=== PATIENT | female | born 1995 | race Caucasian/White ===

== ENCOUNTER 2023-02-19 19:52 | Inpatient (IN) ==
[2023-02-19 20:33] LABS: BUN Creatinine Ratio 14.8 (10-20); Calcium 8.5 mg/dl (8.6-10.3); Est GFR (Non-African American) 122.5 ml/min; Potassium 3.6 mmol/L (3.5-5.1)
[2023-02-19 20:47] LABS: Hemoglobin 13.2 g/dl (12.0-16.0); Mean Corpuscular Hgb Conc 34.7 g/dL (32.0-36.0); Mean Corpuscular Volume 92.2 fL (80.0-100.0); Platelet Count 1 K/uL (130-400); RDW Coefficient of Variation 13.2 % (11.5-14.5); RDW Standard Deviation 44.4 fL (36.4-46.3); Red Blood Count 4.12 M/uL (4.20-5.40); White Blood Count 7.21 K/ul (4.8-10.8)
[2023-02-19] MEDS ORDERED: IMMUNE GLOBULIN (HUMAN) SOLN IV ONE (21:39)
[2023-02-19] MEDS ORDERED: DEXAMETHASONE SOD INJ 4 MG/ML VIAL IV STA (21:39)
[2023-02-19 21:48] LABS: INR 0.9 (0.9-1.1); Partial Thromboplastin Ratio 0.8; Partial Thromboplastin Time 23.7 Seconds (21.0-31.0); Prothrombin Time 10.2 Seconds (9.0-12.0)
[2023-02-19] MEDS ORDERED: methylPREDNISolone 125 MG/2 ML VIAL IV STA (22:04)
[2023-02-19 22:06] LABS: Albumin Level 3.8 gm/dl (3.4-5.0); Bilirubin,Total 0.3 mg/dl (0.2-1.0); Total Protein 6.6 gm/dl (6.0-8.3)
[2023-02-19] MEDS ORDERED: Octagam 10% IVIG 5 gram bottle IV ONE (22:30)
[2023-02-19] MEDS ORDERED: Octagam 10% IVIG 10 gram bottle IV ONE (23:00)
--- NOTE | 2023-02-19 23:33 | History & Physical Report ---
Date of Service February 19, 2023 Assessment & Plan (1) Thrombocytopenia complicating : Plan: -Severe thrombocytopenia with platelets of 1 -Suspect likely ITP in setting of , her other labs including Hgb, coagulation studies and CMP are reassuring -Pt is hemodynamically stable without any signs of active bleeding at present -Multiple labs pending- haptoglobin, LDH, hepatitis panel, peripheral smear -IVIG initiated in ER, will continue -Solumedrol initiated in ER, will continue -Hematology consulted, appreciate recommendations -Monitor CBC (2) : Plan: - at 16 wk GA by US, no other complications with this -OB consulted for routine care -Continue vitamin (3) Hyponatremia: Plan: -Mild hyponatremia Na 135 on admission, likely 2/2 reduced oral intake -Ongoing fluid repletion -Monitor BMP Plan FENGI: Regular OB Code status: Full DVT ppx: SCDs, defer chemoprophylaxis in setting of severe thrombocytopenia Isolation: None Dispo: PCU History of Present Illness Chief Complaint: Low platelets Primary Care Provider: NO PCP Pt is 27 yo F at 16wk GA presenting with thrombocytopenia. Pt states she had lab work done at OB visit on day prior when her platelets were 23. She had repeat labs done today with Plts 1. Pt denies any symptoms of bleeding or easy bruising, denies any other symptoms aside from mild fatigue which she notes has been occurring intermittently throughout her thus far. Pt arrived to ER hemodynamically stable. Initial evaluation significant for Plts 1, Na 135. Had TVUS done on day prior with EFW 25th percentile. ER physician discussed case with hematology, treatment initiated with IVIG + Solumedrol. At present, pt reports no symptoms aside from mild fatigue as above. Denies any other complaints. Allergies Allergy/AdvReac Type Severity Reaction Status Date / Time No Known Allergies Allergy Verified 02/18/23 14:46 Home Medications Medication Instructions Recorded Confirmed Type prenat.vits,trevor,kcn-[id number]-qxliy 1 tab PO DAILY 02/11/23 02/18/23 History Past Med/Surg History Medical History Varicella vaccination Surgical History S/P wrist surgery Family History Denies family history of Ovarian cancer Breast cancer Colorectal cancer Social History Smoking Status: Never smoker Do You Dip or Chew Tobacco: No; Hx Alcohol Use: No Hx Substance Use: No Preferred Language: French Communication Ability: Effective Motorcycle Deliverer Required: No Beliefs That Will Affect Care: None marital status: marital status details: Carlos Mccarthy (31) [phone] Current Living Situation: Spouse Current Living Situation Comment: lives with spouse, 2 children, 2 adopted children current occupational status: employed current occupation: [employer] Feels Safe at Home: Yes Safety Concerns: Feels Safe At This Time Assistive Devices: None Review of Systems Review of Systems: Per HPI/Subjective Physical Exam Physical Exam: General: well-appearing, no acute distress HEENT: PERRL, EOMI, conjunctivae clear without injection, anicteric sclerae, moist mucous membranes, clear oropharynx without exudate or erythema Neck: supple, trachea midline, no thyromegaly, no JVD, no cervical lymphadenopathy CV: RRR, normal S1 and S2, no murmurs Resp: CTAB, no increased work of breathing, no crackles or wheezes Abd: Soft, nontender, nondistended, no guarding or rebound, no hepatosplenomegaly, gravid MSK: Normal bulk of all four extremities Neuro: AOx3, no focal motor or sensory deficits Skin: no rashes or lesions, warm and dry, no ecchymoses Ext: no LE peripheral edema or erythema, capillary refill <2s in all four extremities, 2+ LE peripheral pulses b/l Results & Data Results & Data Vital Signs (Past 12 Hours) Vital Signs Temp Pulse Pulse Resp BP BP Pulse Ox 02/19/23 22:52 72 18 121/74 99 02/19/23 19:54 36.9 C 70 17 135/84 100 O2 Del Method 02/19/23 22:52 Room Air 02/19/23 19:54 Room Air Supervising Physician Co-Signing Physician Notes Attending addendum: I have physically seen this patient, have supervised the medical residents activities, and agree with the H&P unless as otherwise noted. Assessment and Plan: Thrombocytopenia- Platelet count of 1 Most likely ITP in the setting of Treatment recommendations as per hematology oncology IVIG IV Solu-Medrol - 16-week gestation OB consult Remaining orders and notations as noted Resident Activity Tracking Resident Involvement: Resident Care Provided Care Provided: Adult [facility]
[2023-02-20 01:07] LABS: Adenovirus PCR Not Detected (NotDetected); Bordetella parapertussis PCR Not Detected (NotDetected); Bordetella pertussis PCR Not Detected (NotDetected); Chlamydia pneumoniae PCR Not Detected (NotDetected); Coronavirus 229E PCR Not Detected (NotDetected); Coronavirus CoV-2 (COVID19)PCR Not Detected (NotDetected); Coronavirus HKU1 PCR Not Detected (NotDetected); Coronavirus NL63 PCR Not Detected (NotDetected); Coronavirus OC43PCR Not Detected (NotDetected); Human Metapneumovirus PCR Not Detected (NotDetected); Influenza A PCR Not Detected (NotDetected); Influenza B PCR Not Detected (NotDetected); Mycoplasma pneumoniae PCR Not Detected (NotDetected); Parainfluenza Virus 1 PCR Not Detected (NotDetected); Parainfluenza Virus 2 PCR Not Detected (NotDetected); Parainfluenza Virus 3 PCR Not Detected (NotDetected); Parainfluenza Virus 4 PCR Not Detected (NotDetected); Respiratory Syncytial VirusPCR Not Detected (NotDetected); Rhinovirus/Enterovirus PCR Not Detected (NotDetected)
[2023-02-20] MEDS ORDERED: ONDANSETRON INJ 2 MG/ML 2 ML VIAL IV PRN (01:30)
[2023-02-20] MEDS ORDERED: LACTATED RINGER'S 1,000 ML IV SCH (01:30)
--- NOTE | 2023-02-20 01:37 | Emergency Department Note ---
Impression & Plan Thrombocytopenia complicating , Acute ITP ED Provider Note CHIEF COMPLAINT: Abnormal laboratory work HISTORY OF PRESENT ILLNESS: This 27 yo patient 15 weeks presents to the emergency department with complaints of abnormal laboratory work. Patient states she went to her usual [facility] appointment for routine care. They ordered laboratory work for baseline and patient was noted to have platelet count of 23. They asked her to repeat the laboratory work today, platelet count was 1. Patient was sent to the emergency department for further management. She denies any bleeding or cramping. She has not had any blood in her stools. She has not had any recent upper respiratory infections but does admit to some vomiting over the last month. Patient denies any history of similar. She states she has had 2 normal pregnancies prior to this . REVIEW OF SYSTEMS: A review of systems was performed with positives and pertinent negatives listed in the history of present illness. 10 systems were reviewed and are otherwise negative. ALLERGIES: see below MEDICATIONS: see below PMH: see below SOCIAL HISTORY: see below DDx: ITP, TTP, HELLP syndrome, fever, viral illness, malignancy, among others PHYSICAL EXAM: Vital signs reviewed. General: Well-appearing 27-year-old female, in no significant distress. HEENT: No scleral icterus, PERRLA, neck supple. Atraumatic. Cardiovascular: Regular rate and rhythm, no extra sounds. Pulmonary: Clear to auscultation bilaterally, normal work of breathing. Abdomen: Soft, nontender, nondistended, positive bowel sounds. Musculoskeletal: Atraumatic, no peripheral edema. Neurologic: Patient awake alert and oriented x 3, speech is clear Skin: Warm, dry, no rash, no bruising noted EMERGENCY DEPARTMENT COURSE/MDM: This pt was evaluated and appeared to be in no distress. IV access was obtained and lab work was drawn. PT was placed on the vehicle monitor technician and lab work was drawn. External medical records were reviewed including OB notes and labs. Today's lab work is c/w severe thrombocytopenia. Thankfully pt denies signs of bleeding, bruising. Case was d/w hematology Dr. Ireland, who made recommendations for IV solu-medral and IVIG. She will consult on a medical admission. First dose of medications were ordered including 1mg/kg solumedral. Pt was informed of the findings and plan, and agrees. Pt was d/w the hospitalist service for admission and further management. MONITORING: An order for cardiac monitoring was placed and the patient is noted to be in a NSR at 80 beats per minute. DISPOSITION: Admit I have personally spent 40 minutes of critical care time in the direct management of this patient. This was a life/limb threatening event. This 40 minutes is in excess of all separately billable procedures. Past Med/Surg History Medical History Varicella vaccination Surgical History S/P wrist surgery Family History Denies family history of Ovarian cancer Breast cancer Colorectal cancer Social History Smoking Status: Never smoker Do You Dip or Chew Tobacco: No; Hx Alcohol Use: No Hx Substance Use: No Preferred Language: Mongolian Communication Ability: Effective Armored Vehicle Officer Required: No Beliefs That Will Affect Care: None marital status: marital status details: Carlos Mccarthy (31) [phone] Current Living Situation: Spouse Current Living Situation Comment: lives with spouse, 2 children, 2 adopted children current occupational status: employed current occupation: [employer] Feels Safe at Home: Yes Assistive Devices: None Allergies Allergies Allergy/AdvReac Type Severity Reaction Status Date / Time No Known Allergies Allergy Verified 02/18/23 14:46 Home Meds Home Medications Medication Instructions Recorded Confirmed prenat.vits,trevor,[id number] 1 tab PO DAILY 02/11/23 02/18/23 Previous Rx's Medication Instructions Recorded cyanocobalamin (vitamin B-12) 500 1,000 mcg PO QAM #30 tabs 02/22/23 mcg tablet prednisone 20 mg tablet 60 mg PO DAILY #90 tabs 02/22/23 Results & Data (ED) Vital Signs Vital Signs - 24 hr 02/19/23 19:54 02/19/23 22:52 Temperature 36.9 C Temperature Source Temporal Artery Scan Pulse Rate 70 Pulse Rate [Right Finger] 72 Pulse Rhythm Regular Pulse Rhythm [Right Finger] Regular Pulse Strength Normal Pulse Strength [Right Finger] Normal Respiratory Rate 17 18 Respiratory Effort / Characteristics Non-Labored Spontaneous Non-Labored Spontaneous Respiratory Depth Normal Normal Respiratory Pattern Regular Regular Blood Pressure 135/84 Blood Pressure [Right Arm] 121/74 Blood Pressure Mean 101 Blood Pressure Mean [Right Arm] 89 Blood Pressure Position Sitting Blood Pressure Position [Right Arm] Lying Pulse Oximetry 100 99 Oxygen Delivery Method Room Air Room Air Sepsis Recent Fever Within 48 Hours No Sepsis New/Unexplained Change in Mental Status N/A Sepsis Action Taken by Nursing No Action Required Home Medications Current Medication List: was personally reviewed by me Laboratory Data Attestation: I reviewed the patient's lab results. 02/19/23 20:03 02/19/23 20:00 Lab Results 02/19/23 02/19/23 02/19/23 Range/Units 20:00 20:00 20:03 WBC (4.8-10.8) K/ul RBC (4.20-5.40) M/uL Hgb (12.0-16.0) g/dl Hct (37.0-47.0) % MCV (80.0-100.0) fL MCH (25.0-34.0) pg MCHC (32.0-36.0) g/dL RDW Std Deviation (36.4-46.3) fL RDW Coeff of Sal (11.5-14.5) % Plt Count (130-400) K/uL Peripher Smr Path Cons Haptoglobin (43-212) mg/dL PT 10.2 (9.0-12.0) Seconds INR 0.9 (0.9-1.1) APTT 23.7 (21.0-31.0) Seconds PTT Ratio 0.8 Sodium 135 L (136-145) mmol/L Potassium 3.6 (3.5-5.1) mmol/L Chloride 104 (98-107) mmol/L Carbon Dioxide 25 (21-32) mmol/L Anion Gap 6 (3-11) BUN 9 (6-23) mg/dl Creatinine 0.61 (0.6-1.2) mg/dl Est Cr Clr Drug Dosing 122.0 ml/min Est GFR ( Amer) 142.0 ml/min Est GFR (Non-Af Amer) 122.5 ml/min BUN/Creatinine Ratio 14.8 (10-20) Glucose 85 (70-99(Fasting)) mg/dl Calcium 8.5 L (8.6-10.3) mg/dl Total Bilirubin 0.3 (0.2-1.0) mg/dl Direct Bilirubin 0.0 (0-0.2) mg/dl AST 21 (13-39) U/L ALT 13 (7-52) U/L Alkaline Phosphatase 46 (34-104) U/L Lactate Dehydrogenase (86-244) U/L Total Protein 6.6 (6.0-8.3) gm/dl Albumin 3.8 (3.4-5.0) gm/dl HCG, Quant mIU/ml Hepatitis A IgM Ab (NON-REACTIVE) Hep Bs Antigen (NON-REACTIVE) Hep Bs Ag Confirmation Hep B Core IgM Ab (NON-REACTIVE) Hepatitis C Ab (EIA) (NON-REACTIVE) Hep C Ab Signal/Cutoff (<1.00) Blood Type O Positive Antibody Screen NEGATIVE 02/19/23 02/19/23 02/19/23 Range/Units 20:03 20:03 20:03 WBC 7.21 (4.8-10.8) K/ul RBC 4.12 L (4.20-5.40) M/uL Hgb 13.2 (12.0-16.0) g/dl Hct 38.0 (37.0-47.0) % MCV 92.2 (80.0-100.0) fL MCH 32.0 (25.0-34.0) pg MCHC 34.7 (32.0-36.0) g/dL RDW Std Deviation 44.4 (36.4-46.3) fL RDW Coeff of Sal 13.2 (11.5-14.5) % Plt Count 1 L* (130-400) K/uL Peripher Smr Path Cons Haptoglobin 70 (43-212) mg/dL PT (9.0-12.0) Seconds INR (0.9-1.1) APTT (21.0-31.0) Seconds PTT Ratio Sodium (136-145) mmol/L Potassium (3.5-5.1) mmol/L Chloride (98-107) mmol/L Carbon Dioxide (21-32) mmol/L Anion Gap (3-11) BUN (6-23) mg/dl Creatinine (0.6-1.2) mg/dl Est Cr Clr Drug Dosing ml/min Est GFR ( Amer) ml/min Est GFR (Non-Af Amer) ml/min BUN/Creatinine Ratio (10-20) Glucose (70-99(Fasting)) mg/dl Calcium (8.6-10.3) mg/dl Total Bilirubin (0.2-1.0) mg/dl Direct Bilirubin (0-0.2) mg/dl AST (13-39) U/L ALT (7-52) U/L Alkaline Phosphatase (34-104) U/L Lactate Dehydrogenase (86-244) U/L Total Protein (6.0-8.3) gm/dl Albumin (3.4-5.0) gm/dl HCG, Quant [id number] mIU/ml Hepatitis A IgM Ab (NON-REACTIVE) Hep Bs Antigen (NON-REACTIVE) Hep Bs Ag Confirmation Hep B Core IgM Ab (NON-REACTIVE) Hepatitis C Ab (EIA) (NON-REACTIVE) Hep C Ab Signal/Cutoff (<1.00) Blood Type Antibody Screen 02/19/23 02/19/23 Range/Units 22:48 22:48 WBC (4.8-10.8) K/ul RBC (4.20-5.40) M/uL Hgb (12.0-16.0) g/dl Hct (37.0-47.0) % MCV (80.0-100.0) fL MCH (25.0-34.0) pg MCHC (32.0-36.0) g/dL RDW Std Deviation (36.4-46.3) fL RDW Coeff of Sal (11.5-14.5) % Plt Count (130-400) K/uL Peripher Smr Path Cons Haptoglobin (43-212) mg/dL PT (9.0-12.0) Seconds INR (0.9-1.1) APTT (21.0-31.0) Seconds PTT Ratio Sodium (136-145) mmol/L Potassium (3.5-5.1) mmol/L Chloride (98-107) mmol/L Carbon Dioxide (21-32) mmol/L Anion Gap (3-11) BUN (6-23) mg/dl Creatinine (0.6-1.2) mg/dl Est Cr Clr Drug Dosing ml/min Est GFR ( Amer) ml/min Est GFR (Non-Af Amer) ml/min BUN/Creatinine Ratio (10-20) Glucose (70-99(Fasting)) mg/dl Calcium (8.6-10.3) mg/dl Total Bilirubin (0.2-1.0) mg/dl Direct Bilirubin (0-0.2) mg/dl AST (13-39) U/L ALT (7-52) U/L Alkaline Phosphatase (34-104) U/L Lactate Dehydrogenase 151 (86-244) U/L Total Protein (6.0-8.3) gm/dl Albumin (3.4-5.0) gm/dl HCG, Quant mIU/ml Hepatitis A IgM Ab NON-REACTIVE (NON-REACTIVE) Hep Bs Antigen NON-REACTIVE (NON-REACTIVE) Hep Bs Ag Confirmation TNP Hep B Core IgM Ab NON-REACTIVE (NON-REACTIVE) Hepatitis C Ab (EIA) NON-REACTIVE (NON-REACTIVE) Hep C Ab Signal/Cutoff 0.07 (<1.00) Blood Type Antibody Screen Administered Medications Discontinued Medications Acetaminophen (Acetaminophen 325 Mg Tab) 650 mg PO NOW STA Stop: 02/20/23 14:04 Last Admin: 02/20/23 14:08 Dose: 650 mg Documented By: EVA Cyanocobalamin (Cyanocobalamin (B-12) 500 Mcg Tablet) 1,000 [facility]cg [facility] Stop: 03/22/23 12:29 Last Admin: 02/22/23 09:17 Dose: 1,000 mcg Documented By: Admin: 02/21/23 08:52 Dose: 1,000 mcg Documented By: Admin: 02/20/23 14:08 Dose: 1,000 mcg Documented By: EVA Dexamethasone (Dexamethasone Sod Inj 4 Mg/Ml Vial) 40 mg IV NOW STA Stop: 02/19/23 21:40 Last Admin: 02/19/23 22:15 Dose: Not Given Documented By: WOOD PREPARATION SUPERVISOR Immune Globulin (Octagam 10%) 200 mls @ 34.08 mls/hr IV 0000,2330 [facility]; Protocol Stop: 02/20/23 05:53 Last Titration: 02/20/23 12:09 Dose: 0 mg/kg/min, 0 mls/hr Documented By: Admin: 02/20/23 08:30 Dose: 2.05 mg/kg/min, 70 mls/hr Documented By: Titration: 02/20/23 08:13 Dose: 2.05 mg/kg/min, 70 mls/hr Documented By: Titration: 02/20/23 05:27 Dose: 2.05 mg/kg/min, 70 mls/hr Documented By: Admin: 02/20/23 05:14 Dose: 1 mg/kg/min, 34.1 mls/hr Documented By: EMB Immune Globulin (Octagam 10%) 100 mls @ 34.08 mls/hr IV 2300 ONE; Protocol Stop: 02/20/23 01:56 Last Titration: 02/20/23 04:25 Dose: 0 mg/kg/min, 0 mls/hr Documented By: Titration: 02/20/23 03:18 Dose: 2 mg/kg/min, 68.2 mls/hr Documented By: Admin: 02/20/23 01:54 Dose: 1 mg/kg/min, 34.1 mls/hr Documented By: AW Immune Globulin (Octagam 10%) 50 mls @ 34.08 mls/hr IV 2230 ONE; Protocol Stop: 02/19/23 23:58 Last Titration: 02/20/23 01:39 Dose: 0 mg/kg/min, 0 mls/hr Documented By: Admin: 02/20/23 00:14 Dose: 1 mg/kg/min, 34.1 mls/hr Documented By: AW Lactated Ringer's (Lr) 1,000 mls @ 80 mls/hr IV .[id number] POLLO Stop: 02/20/23 13:59 Last Infusion: 02/20/23 18:09 Dose: 0 mls/hr Documented By: Admin: 02/20/23 10:18 Dose: 80 mls/hr Documented By: NH Magnesium Sulfate (Magnesium Sulfate / Wtr) 40 gm in 1,000 mls @ 50 mls/hr IV .Q20H POLLO Stop: 03/22/23 10:44 Last Admin: 02/20/23 11:09 Dose: Not Given Documented By: EVA Immune Globulin (Octagam 10%) 200 mls @ 34.08 mls/hr IV 1700,1730,1800 POLLO; Protocol Stop: 02/20/23 23:53 Last Admin: 05/24/23 18:09 Dose: Not Given Documented By: AM Immune Globulin (Octagam 10%) 200 mls @ 34.08 mls/hr IV 0800,0830,0900 [facility]; Protocol Stop: 02/21/23 14:53 Last Titration: 02/22/23 02:00 Dose: 0 mg/kg/min, 0 mls/hr Documented By: Admin: 02/21/23 20:19 Dose: 1 mg/kg/min, 34.1 mls/hr Documented By: Titration: 02/21/23 20:09 Dose: 1 mg/kg/min, 34.1 mls/hr Documented By: Admin: 02/21/23 14:17 Dose: 1 mg/kg/min, 34.1 mls/hr Documented By: Titration: 02/21/23 14:17 Dose: 1 mg/kg/min, 34.1 mls/hr Documented By: Admin: 02/21/23 08:45 Dose: 1 mg/kg/min, 34.1 mls/hr Documented By: LELO Immune Globulin (Immune Globulin (Human) Soln ) 1 each IV NOW ONE Stop: 02/19/23 21:40 Last Admin: 02/20/23 00:58 Dose: Not Given Documented By: SHANICE Immune Globulin (Immune Globulin (Human) Soln ) 1 each IV NOW ONE Stop: 02/20/23 16:38 Last Admin: 02/20/23 18:09 Dose: Not Given Documented By: AM Magnesium Sulfate (Mag Sulfate 4gm Bolus From Bag) 4 gm IV ONE ONE Stop: 02/20/23 10:46 Last Admin: 02/20/23 11:09 Dose: Not Given Documented By: EVA Methylprednisolone (Methylprednisolone 125 Mg/2 Ml Vial) 55 mg IV NOW STA Stop: 02/19/23 22:05 Last Admin: 02/19/23 23:49 Dose: 55 mg Documented By: SHANICE Prednisone (Prednisone 20 Mg Tab) 60 mg PO DAILY [facility] Stop: 03/22/23 08:59 Last Admin: 02/22/23 09:17 Dose: 60 mg Documented By: Admin: 02/21/23 08:52 Dose: 60 mg Documented By: Admin: 02/20/23 08:31 Dose: 60 mg Documented By: RADHA Prenat Multivit/[place]/Iron/Folic Ac ( Vitamin 1 Tab) 1 tab PO DAILY POLLO Stop: 03/22/23 08:59 Last Admin: 02/22/23 09:17 Dose: 1 tab Documented By: Admin: 02/21/23 08:52 Dose: 1 tab Documented By: Admin: 02/20/23 08:40 Dose: 1 tab Documented By: OK Discharge Plan Visit Data Chief Complaint: Abnormal Labs/Diagnostic Testing Stated Complaint: LOW PLATELETS,REF BY DOC, ED Provider: Sierra Domínguez Discharge Problem: Thrombocytopenia complicating , Acute ITP Patient Disposition: Admitted As Inpatient Discharge Instructions Interventions: ED Discharge Assessment Last Done: 02/20/23 16:55
[2023-02-20] MEDS: Octagam 10% IVIG 20 gram bottle IV SCH ×2 (05:14→08:30)
[2023-02-20 07:33] LABS: Albumin Level 3.3 gm/dl (3.4-5.0); Bilirubin,Total 0.3 mg/dl (0.2-1.0); Calcium 8.6 mg/dl (8.6-10.3); Creatinine Clr Calc Pharmacy 106.3 ml/min; Est GFR (African American) 135.7 ml/min; Est GFR (Non-African American) 117.1 ml/min; Globulin 3.2 gm/dl (2.5-4.0); Potassium 4.3 mmol/L (3.5-5.1); Total Protein 6.5 gm/dl (6.0-8.3)
[2023-02-20 07:44] LABS: Prothrombin Time 10.5 Seconds (9.0-12.0)
[2023-02-20 07:48] LABS: Hemoglobin 12.2 g/dl (12.0-16.0); Mean Corpuscular Hemoglobin 31.3 pg (25.0-34.0); Mean Corpuscular Hgb Conc 34.9 g/dL (32.0-36.0); Mean Corpuscular Volume 89.7 fL (80.0-100.0); Platelet Count 1 K/uL (130-400); RDW Coefficient of Variation 12.9 % (11.5-14.5); RDW Standard Deviation 42.5 fL (36.4-46.3); White Blood Count 6.92 K/ul (4.8-10.8)
[2023-02-20 07:58] LABS: Basophils # (auto) 0.03 K/uL (0-0.2); Basophils % (auto) 0.4 %; Immature Granulocytes # (auto) 0.03 K/uL (0.01-0.20); Immature Granulocytes % (auto) 0.4 %; Lymphocytes # (auto) 0.63 K/uL (1.2-3.4); Lymphocytes % (auto) 9.1 %; Monocytes # (auto) 0.07 K/uL (0.11-0.59); Neutrophils # (auto) 6.16 K/uL (1.40-6.50); Neutrophils % (auto) 89.1 %
[2023-02-20] MEDS: predniSONE 20 MG TAB PO SCH (08:31)
[2023-02-20] MEDS: PRENATAL VITAMIN 1 TAB PO SCH (08:40)
--- NOTE | 2023-02-20 08:59 | OB/GYN Consultation ---
Date of Consultation February 20, 2023 Assessment & Plan (1) with 16 completed weeks gestation: (2) Thrombocytopenia complicating : Plan Patient has severe TCP discovered on routine PN labs. She is asymptomatic from this standpoint. She has never had an issue with this in the past. Given the severity, she was advised to come to the hospital for evaluation. She has no specific ob issues at this point, no s/s of bleeding. She notes some mild, intermittent cramping. Management per primary care team. FHT reassuring today. Continue daily pnv. f/u in the outpatient office once d/c. Please let us know if there is anything ob related that we can help with. Otherwise, management per hospitalist for TCP. History of Present Illness Reason for Consultation: severe thrombocytopenia in Requesting Physician: hospitalist Attending Physician: Colton Jules History of Present Illness Patient is a 27yowf who recently presented for a nob visit at 16 11/06. She is currently 16 01/04 by irregular lmp, late presentation to care. She had routine ob labs including cbc with plt count of 23K. She had this repeated late in the day yesterday and count was found to be 1K. She was advised to come to the hospital for evaluation and is being admitted. We are being consulted for "routine ob care". Patient has a hx of two previous uncomplicated pregnancies and deliveries at [place] . This is her first with us. Past Pregnancies Del. Date GA wks Lbr Lgth wt Sex Type del [facility] Del Prov ? Comment 01/08/18 40 30 minutes, pushed 10 minutes 6- 12 M None Other [facility] 01/28/19 40 30 minutes, pushed 10 minutes 6- 4 F None Other [facility] and Delivery Plans Hx precipitous labor ob labs--O+/ab-/rprnr/hiv neg/ri. Hepb and c pending as labs were only drawn on 02/18. Allergies Allergy/AdvReac Type Severity Reaction Status Date / Time No Known Allergies Allergy Verified 02/18/23 14:46 Home Medications Medication Instructions Recorded Confirmed Type prenat.vits,trevor,vlc-fncv-imodz 1 tab PO DAILY 02/11/23 02/18/23 History Patient History Medical History Varicella vaccination Surgical History S/P wrist surgery Family History Denies family history of Ovarian cancer Breast cancer Colorectal cancer Social History Smoking Status: Never smoker Do You Dip or Chew Tobacco: No; Hx Alcohol Use: No Hx Substance Use: No Preferred Language: Faroese Communication Ability: Effective Space Officer Required: No Beliefs That Will Affect Care: None marital status: marital status details: Carlos Mccarthy (31) [phone] Current Living Situation: Spouse Current Living Situation Comment: lives with spouse, 2 children, 2 adopted children current occupational status: employed current occupation: [employer] Feels Safe at Home: Yes Safety Concerns: Feels Safe At This Time Physical Exam Constitutional: WD/WN, vitals as above Gastrointestinal (Abdomen): soft, nt, nd, fundus palpates about 16 weeks. Genitourinary: fht--125-130 Results & Data Vital Signs (Past 12 Hours) Vital Signs Temp Pulse Pulse Resp BP BP Pulse Ox 02/20/23 08:57 75 02/20/23 07:30 37.0 C 71 17 110/69 98 02/20/23 06:43 70 17 101/66 98 02/20/23 04:42 70 14 99/65 L 98 02/20/23 03:55 02/20/23 03:00 78 18 97/55 L 98 02/20/23 00:31 80 18 121/76 98 02/19/23 22:52 72 18 121/74 99 Pulse Ox O2 Del Method O2 Del Method 02/20/23 08:57 02/20/23 07:30 Room Air 02/20/23 06:43 02/20/23 04:42 Room Air 02/20/23 03:55 98 Room Air 02/20/23 03:00 Room Air 02/20/23 00:31 Room Air 02/19/23 22:52 Room Air PG Care Time/CCT Total # of Minutes Spent Total Time Spent with Patient: Total time spent is greater than 50% in coordination of care (as documented) at patient's floor/unit and/or counseling patient: Coding Level of Care Code 49330 Inpt Consult Level 1 Diagnoses with 16 completed weeks gestation Z3A.16 Thrombocytopenia complicating O99.119; D69.6
[2023-02-20] MEDS ORDERED: MAGNESIUM SULFATE / WTR 40 GM/1,000 ML BAG IV SCH (10:45)
[2023-02-20] MEDS ORDERED: MAG SULFATE 4GM BOLUS FROM BAG IV ONE (10:45)
[2023-02-20] MEDS ORDERED: ACETAMINOPHEN 325 MG TAB PO STA (14:03)
--- NOTE | 2023-02-20 14:05 | Oncology Consultation ---
Date of Consultation February 20, 2023 Assessment & Plan (1) Acute ITP: (2) Thrombocytopenia complicating : (3) B12 deficiency: Plan Very pleasant 27-year-old female who presented with severe thrombocytopenia and platelet count of 1000. She denies any recent new medications, viral infections or other potential causes of ITP. Viral studies including testing for hepatitis B, C and HIV obtained by her net front end developer were negative. Coagulation panel was also within normal limits with normal PT/INR and PTT. Liver enzymes were also normal. Peripheral smear review did not show any evidence to suggest schistocytes. She also has no anemia. Based on this, there is no evidence to suggest TTP/HUS, DIC or HELLP syndrome. Explained to patient, her mother and that ITP in general is usually a diagnosis of exclusion and her presentation is very consistent with ITP given negative work so far. No concern at this time for underlying hematologic malignancy or other hematologic process.. ITP has been well reported in . Would recommend IVIG 1 g/kg/day x 2 days. For steroid coverage, recommend prednisone 1 mg/kg/day since this is less likely to cross the placenta. Since B12 level is low normal, recommend B12 supplementation. Ideally, would have started her on parenteral B12 supplementation however will start with oral B12 supplementation at this time given severe thrombocytopenia. Recommend rechecking CBC later this afternoon. Would expect platelet count to improve over the next 24 to 48 hours. If she develops any sign of bleeding, would recommend platelet transfusion at that time Thank you for this consult. Please feel free to call if you have any further questions History of Present Illness Reason for Consultation: Severe thrombocytopenia Attending Physician: Colton Jules History of Present Illness Very pleasant 27-year-old female who is currently about 16 weeks who presented to [facility] ER yesterday with severe thrombocytopenia and platelet count of 1000. Patient states that she had routine labs obtained by her net front end developer on 02/18/2023 which revealed platelet count of 23,000. Her OB then recommended repeat labs obtained on 02/19/2023 which revealed platelet count of 1000 for which she was told to present to the ER. She denies abnormal bleeding or bruising. Denies prior history of thrombocytopenia. Discussed case with ER physician and recommended she receive IVIG 1 g/kg/day x 2 days as well as prednisone 1 mg/kg/day. Allergies Allergy/AdvReac Type Severity Reaction Status Date / Time No Known Allergies Allergy Verified 02/18/23 14:46 Home Medications Medication Instructions Recorded Confirmed Type prenat.vits,trevor,aqw-ndec-kgvfp 1 tab PO DAILY 02/11/23 02/18/23 History Patient History Medical History Varicella vaccination Surgical History S/P wrist surgery Family History Denies family history of Ovarian cancer Breast cancer Colorectal cancer Social History Smoking Status: Never smoker Do You Dip or Chew Tobacco: No; Hx Alcohol Use: No Hx Substance Use: No Preferred Language: Slovak Communication Ability: Effective Trade Economist Required: No Beliefs That Will Affect Care: None marital status: marital status details: Carlos Mccarthy ([phone] Current Living Situation: Spouse Current Living Situation Comment: lives with spouse, 2 children, 2 adopted children current occupational status: employed current occupation: [employer] Feels Safe at Home: Yes Safety Concerns: Feels Safe At This Time Assistive Devices: None Physical Exam Constitutional: WD/WN, vitals as above well developed and well nourished ENMT: external ear and nose normal, oropharynx normal Respiratory: normal respiratory effort, lungs clear to auscultation Cardiovascular: RRR, no murmur, no edema Gastrointestinal (Abdomen): normal bowel sounds, soft, nontender, no hepatosplenomegaly Results & Data Vital Signs (Past 12 Hours) Vital Signs Temp Pulse Pulse Resp BP BP Pulse Ox 02/20/23 12:04 77 19 02/20/23 12:04 107/68 02/20/23 12:00 66 18 02/20/23 11:30 70 18 02/20/23 11:00 70 17 02/20/23 10:30 78 18 02/20/23 10:00 78 17 98 02/20/23 10:15 36.8 C 02/20/23 09:30 78 19 105/66 99 02/20/23 09:00 72 17 128/67 93 02/20/23 08:30 115/79 02/20/23 09:42 36.8 C 02/20/23 08:57 75 02/20/23 07:30 37.0 C 71 17 110/69 98 02/20/23 06:43 70 17 101/66 98 02/20/23 04:42 70 14 99/65 L 98 02/20/23 03:55 02/20/23 03:00 78 18 97/55 L 98 Pulse Ox O2 Del Method O2 Del Method 02/20/23 12:04 02/20/23 12:04 02/20/23 12:00 02/20/23 11:30 02/20/23 11:00 02/20/23 10:30 02/20/23 10:00 02/20/23 10:15 02/20/23 09:30 Room Air 02/20/23 09:00 Room Air 02/20/23 08:30 02/20/23 09:42 02/20/23 08:57 02/20/23 07:30 Room Air 02/20/23 06:43 02/20/23 04:42 Room Air 02/20/23 03:55 98 Room Air 02/20/23 03:00 Room Air
[2023-02-20] MEDS: CYANOCOBALAMIN (B-12) 500 MCG TABLET PO SCH (14:08)
[2023-02-20] MEDS ORDERED: IMMUNE GLOBULIN (HUMAN) SOLN IV ONE (16:37)
[2023-02-20] MEDS ORDERED: Octagam 10% IVIG 20 gram bottle IV SCH (17:00)
--- NOTE | 2023-02-20 22:10 | Billing Data ---
Date of Service February 20, 2023 Coding Level of Care Code 88769 INT INP/OBS CARE
--- NOTE | 2023-02-20 22:47 | Hospitalist Progress Note ---
Date of Service February 20, 2023 Assessment & Plan (1) Thrombocytopenia complicating : Plan: -Severe thrombocytopenia with platelets of 1 -Suspect likely ITP in setting of , her other labs including Hgb, coagulation studies and CMP are reassuring -Pt is hemodynamically stable without any signs of active bleeding at present -Multiple labs pending- haptoglobin, LDH, hepatitis panel, peripheral smear -IVIG initiated in ER, will continue -Solumedrol initiated in ER, will continue -Hematology consulted, appreciate recommendations -Monitor CBC: appears to be ITP though diagnosis of exclusion. continue IVIG and prednisone (2) : Plan: - at 16 wk GA by US, no other complications with this -OB consulted for routine care -Continue vitamin (3) Hyponatremia: Plan: -Mild hyponatremia Na 135 on admission, likely 2/2 reduced oral intake -Ongoing fluid repletion -Monitor BMP Plan FENGI: Regular OB Code status: Full DVT ppx: SCDs, defer chemoprophylaxis in setting of severe thrombocytopenia Isolation: None Dispo: PCU Admission and Anticipated Discharge Date Admission Date: February 19, 2023 Subjective 27 yo female reports no new symptoms. Review of Systems Review of Systems: All systems reviewed & are unremarkable except as noted in HPI & below Physical Exam Physical Exam: General: well-appearing, no acute distress HEENT: PERRL, EOMI, conjunctivae clear without injection, anicteric sclerae, moist mucous membranes, clear oropharynx without exudate or erythema Neck: supple, trachea midline, no thyromegaly, no JVD, no cervical lymph adenopathy CV: RRR, normal S1 and S2, no murmurs Resp: CTAB, no increased work of breathing, no crackles or wheezes Abd: Soft, nontender, nondistended, no guarding or rebound, no hepatosplenomegaly, gravid MSK: Normal bulk of all four extremities Neuro: AOx3, no focal motor or sensory deficits Skin: no rashes or lesions, warm and dry, no ecchymoses Ext: no LE peripheral edema or erythema, capillary refill <2s in all four extremities, 2+ LE peripheral pulses b/l Results & Data Results & Data Vital Signs (Past 12 Hours) Vital Signs Temp Pulse Pulse Resp BP BP Pulse Ox 02/20/23 19:09 36.8 C 74 18 113/61 99 02/20/23 17:51 36.7 C 67 20 111/76 98 02/20/23 16:26 81 02/20/23 14:30 72 19 02/20/23 14:00 80 19 02/20/23 13:30 67 14 02/20/23 13:00 72 18 02/20/23 12:30 76 20 02/20/23 12:04 77 19 02/20/23 12:04 107/68 02/20/23 12:00 66 18 02/20/23 11:30 70 18 02/20/23 11:00 70 17 O2 Del Method 02/20/23 19:09 Room Air 02/20/23 17:51 Room Air 02/20/23 16:26 02/20/23 14:30 02/20/23 14:00 02/20/23 13:30 02/20/23 13:00 02/20/23 12:30 02/20/23 12:04 02/20/23 12:04 02/20/23 12:00 02/20/23 11:30 02/20/23 11:00 PG Care Time/CCT Total # of Minutes Spent Total Time Spent with Patient: Total time spent is greater than 50% in coordination of care (as documented) at patient's floor/unit and/or counseling patient: Coding Level of Care Code 84099 SUB INP/OBS CARE 2/35MIN Diagnoses Thrombocytopenia complicating O99.119; D69.6 Z34.90 Hyponatremia E87.1
[2023-02-21] MEDS ORDERED: IMMUNE GLOBULIN (HUMAN) SOLN IV ONE (04:41)
[2023-02-21 08:28] LABS: Albumin Globulin Ratio 0.9 (0.9-2); BUN Creatinine Ratio 17.5 (10-20); Bilirubin,Total 0.3 mg/dl (0.2-1.0); Calcium 8.2 mg/dl (8.6-10.3); Creatinine Clr Calc Pharmacy 118.1 ml/min; Est GFR (African American) 140.5 ml/min; Est GFR (Non-African American) 121.2 ml/min; Globulin 3.5 gm/dl (2.5-4.0); Potassium 3.6 mmol/L (3.5-5.1); Total Protein 6.5 gm/dl (6.0-8.3)
[2023-02-21 08:35] LABS: Hematocrit (blood only) 33.1 % (37.0-47.0); Hemoglobin 11.8 g/dl (12.0-16.0); Mean Corpuscular Hemoglobin 31.9 pg (25.0-34.0); Mean Corpuscular Hgb Conc 35.6 g/dL (32.0-36.0); Mean Corpuscular Volume 89.5 fL (80.0-100.0); Platelet Count 13 K/uL (130-400); RDW Coefficient of Variation 12.9 % (11.5-14.5); RDW Standard Deviation 42.4 fL (36.4-46.3); White Blood Count 10.34 K/ul (4.8-10.8)
[2023-02-21] MEDS: Octagam 10% IVIG 20 gram bottle IV SCH ×3 (08:45→20:19)
[2023-02-21 08:46] LABS: Basophils # (auto) 0.02 K/uL (0-0.2); Basophils % (auto) 0.2 %; Eosinophils # (auto) 0.01 K/uL (0-0.50); Eosinophils % (auto) 0.1 %; Immature Granulocytes # (auto) 0.06 K/uL (0.01-0.20); Immature Granulocytes % (auto) 0.6 %; Lymphocytes # (auto) 1.35 K/uL (1.2-3.4); Lymphocytes % (auto) 13.1 %; Monocytes # (auto) 0.59 K/uL (0.11-0.59); Monocytes % (auto) 5.7 %; Neutrophils # (auto) 8.31 K/uL (1.40-6.50); Neutrophils % (auto) 80.3 %
[2023-02-21] MEDS: predniSONE 20 MG TAB PO SCH (08:52)
[2023-02-21] MEDS: PRENATAL VITAMIN 1 TAB PO SCH (08:52)
[2023-02-21] MEDS: CYANOCOBALAMIN (B-12) 500 MCG TABLET PO SCH (08:52)
--- NOTE | 2023-02-21 10:52 | Hospitalist Progress Note ---
Date of Service February 21, 2023 Assessment & Plan (1) Thrombocytopenia complicating : Plan: -Severe thrombocytopenia with platelets of 1 on presentation improved to 13K after IGG and steroids -Suspect likely ITP in setting of , -Hematology consulted, appreciate recommendations, feel that this is consistent with ITP endorses 48 hrs of IGG and continue steroids, recommendations if platelet count exceeds 30,000 on the 26 patient may be discharged to remain on prednisone 1 mg/kg/day until seen by outpatient hematology (2) : Plan: - at 16 wk GA by US, no other complications with this -OB consulted for routine care -Continue vitamin (3) Hyponatremia: Plan: -Mild hyponatremia Na 135 on admission, likely 2/2 reduced oral intake -Ongoing fluid repletion -Monitor BMP Plan Code status: Full DVT ppx: SCDs, defer chemoprophylaxis in setting of severe thrombocytopenia Admission and Anticipated Discharge Date Admission Date: February 19, 2023 Subjective Patient has no complaints or problems. She has no abdominal pain or active bruising bleeding of any kind Physical Exam Physical Exam: Weekly she is awake alert appropriate currently receiving IgG Breathing is nonlabored lungs clear Results & Data Results & Data Vital Signs (Past 12 Hours) Vital Signs Temp Pulse Pulse Resp BP Pulse Ox O2 Del Method 02/21/23 07:25 98.1 F 83 18 110/71 96 Room Air 02/21/23 02:57 97.9 F 68 18 95/58 L 99 Room Air 02/20/23 23:52 88 02/20/23 22:58 98.1 F 83 18 97/56 L 97 Room Air Laboratory Results Reviewed CBC with differential PG Care Time/CCT Total # of Minutes Spent Total Time Spent with Patient: Total time spent is greater than 50% in coordination of care (as documented) at patient's floor/unit and/or counseling patient: Coding Level of Care Code 53524 SUB INP/OBS CARE 2/35MIN Diagnoses Thrombocytopenia complicating O99.119; D69.6 Z34.90 Hyponatremia E87.1
--- NOTE | 2023-02-21 12:32 | Progress Note ---
Date of Service February 21, 2023 Assessment & Plan (1) Acute ITP: (2) with 16 completed weeks gestation: (3) B12 deficiency: Plan Doing better with improvement in platelet count noted. -Continue with prednisone 60 mg p.o. daily. She will receive IVIG 1 g/kg today -Continue with daily oral B12 supplementation -She can be discharged home once platelet count is above 30,000 on prednisone 60 mg p.o. daily as well as daily oral B12 supplementation. -Recommend weekly CBC after discharge(next week saturday at [facility]).I will arrange for her to be seen in hematology clinic at [facility] shortly after discharge. Admission and Anticipated Discharge Date Admission Date: February 19, 2023 Subjective Doing well. Denies any abnormal bleeding or bruising. Platelet count has improved from 1000-13,000. She is scheduled to receive second dose of IVIG today Physical Exam Constitutional: WD/WN, vitals as above Results & Data Vital Signs (Past 12 Hours) Vital Signs Temp Pulse Resp BP Pulse Ox O2 Del Method 02/21/23 11:22 36.9 C 77 18 108/69 97 Room Air 02/21/23 07:25 36.7 C 83 18 110/71 96 Room Air 02/21/23 02:57 36.6 C 68 18 95/58 L 99 Room Air
[2023-02-21 12:58] LABS: HBSAG NON-REACTIVE (NON-REACTIVE); Hepatitis A Antibody IgM NON-REACTIVE (NON-REACTIVE); Hepatitis B Core Antibody IgM NON-REACTIVE (NON-REACTIVE)
[2023-02-21 16:57] LABS: Anti Nuclear Antibody Screen NEGATIVE (NEGATIVE)
[2023-02-22 07:49] VITALS: BP 115/70; PULSE 79; TEMP 97.5; O2SAT 99
--- NOTE | 2023-02-22 08:32 | Progress Note ---
Date of Service February 22, 2023 Assessment & Plan (1) Acute ITP: (2) B12 deficiency: (3) with 16 completed weeks gestation: Plan - CBC ordered this morning. She can be discharged home if platelet count is around 30,000 or greater. -Please discharge home on prednisone 60 mg p.o. daily. Also continue with oral B12 1000 mcg -We will also need orders for CBC weekly to be drawn at [facility] -I will arrange for outpatient follow-up with me in the next 1 to 2 weeks Admission and Anticipated Discharge Date Admission Date: February 19, 2023 Subjective Seen this morning. She denies any new issues. Denies abnormal bruising or bleeding. Results & Data Vital Signs (Past 12 Hours) Vital Signs Temp Pulse Pulse Resp BP Pulse Ox O2 Del Method 02/22/23 07:48 36.4 C L 79 16 115/70 99 Room Air 02/22/23 03:00 02/22/23 03:18 36.7 C 75 18 104/64 98 Room Air 02/21/23 23:30 92 H 02/21/23 23:09 36.6 C 73 20 109/63 98 Room Air O2 Del Method 02/22/23 07:48 02/22/23 03:00 Room Air 02/22/23 03:18 02/21/23 23:30 02/21/23 23:09
[2023-02-22 08:36] LABS: Basophils # (auto) 0.03 K/uL (0-0.2); Basophils % (auto) 0.3 %; Eosinophils # (auto) 0.03 K/uL (0-0.50); Eosinophils % (auto) 0.3 %; Hematocrit (blood only) 34.8 % (37.0-47.0); Hemoglobin 12.1 g/dl (12.0-16.0); Immature Granulocytes # (auto) 0.08 K/uL (0.01-0.20); Immature Granulocytes % (auto) 0.8 %; Lymphocytes # (auto) 1.68 K/uL (1.2-3.4); Lymphocytes % (auto) 17.3 %; Mean Corpuscular Hemoglobin 31.2 pg (25.0-34.0); Mean Corpuscular Hgb Conc 34.8 g/dL (32.0-36.0); Mean Corpuscular Volume 89.7 fL (80.0-100.0); Monocytes # (auto) 0.51 K/uL (0.11-0.59); Monocytes % (auto) 5.3 %; Neutrophils # (auto) 7.38 K/uL (1.40-6.50); Platelet Count 32 K/uL (130-400); RDW Coefficient of Variation 13.1 % (11.5-14.5); RDW Standard Deviation 42.8 fL (36.4-46.3); Red Blood Count 3.88 M/uL (4.20-5.40); White Blood Count 9.71 K/ul (4.8-10.8)
[2023-02-22 08:43] LABS: Albumin Globulin Ratio 0.6 (0.9-2); Albumin Level 2.9 gm/dl (3.4-5.0); BUN Creatinine Ratio 20.6 (10-20); Bilirubin,Total 0.2 mg/dl (0.2-1.0); Calcium 8.3 mg/dl (8.6-10.3); Creatinine Clr Calc Pharmacy 117.9 ml/min; Est GFR (African American) 140.5 ml/min; Est GFR (Non-African American) 121.2 ml/min; Globulin 4.6 gm/dl (2.5-4.0); Potassium 3.7 mmol/L (3.5-5.1); Total Protein 7.5 gm/dl (6.0-8.3)
[2023-02-22] MEDS: CYANOCOBALAMIN (B-12) 500 MCG TABLET PO SCH (09:17)
[2023-02-22] MEDS: PRENATAL VITAMIN 1 TAB PO SCH (09:17)
[2023-02-22] MEDS: predniSONE 20 MG TAB PO SCH (09:17)
--- NOTE | 2023-02-22 16:33 | Discharge Summary ---
Date of Service February 22, 2023 Admission HPI Per Admitting Provider Pt is 27 yo F at 16wk GA presenting with thrombocytopenia. Pt states she had lab work done at OB visit on day prior when her platelets were 23. She had repeat labs done today with Plts 1. Pt denies any symptoms of b leeding or easy bruising, denies any other symptoms aside from mild fatigue which she notes has been occurring intermittently throughout her thus far. Pt arrived to ER hemodynamically stable. Initial evaluation significant for Plts 1, Na 135. Had TVUS done on day prior with EFW 25th percentile. ER physician discussed case with hematology, treatment initiated with IVIG + Solumedrol. At present, pt reports no symptoms aside from mild fatigue as above. Denies any other complaints. Principal Diagnosis Immune thrombocytopenia Current intrauterine approximately 16 weeks Discharge Exam Patient is awake alert appropriate no distress no petechiae no shortness of breath no abdominal pain Discharge Data Allergies Allergy/AdvReac Type Severity Reaction Status Date / Time No Known Allergies Allergy Verified 02/18/23 14:46 Consultations 02/19/23 23:32 Consult Obstetrics Routine Patient has severe TCP discovered on routine PN labs. She is asymptomatic from this standpoint. She has never had an issue with this in the past. Given the severity, she was advised to come to the hospital for evaluation. She has no specific ob issues at this point, no s/s of bleeding. She notes some mild, intermittent cramping. Management per primary care team. FHT reassuring today. Continue daily pnv. f/u in the outpatient office once d/c. Please let us know if there is anything ob related that we can help with. Otherwise, management per hospitalist for TCP. 02/20/23 01:30 Consult Hematology Routine severe thrombocytopenia and platelet count of 1000. She denies any recent new medications, viral infections or other potential causes of ITP. Viral studies including testing for hepatitis B, C and HIV obtained by her coding compliance manager were negative. Coagulation panel was also within normal limits with normal PT/INR and PTT. Liver enzymes were also normal. Peripheral smear review did not show any evidence to suggest schistocytes. She also has no anemia. Based on this, there is no evidence to suggest TTP/HUS, DIC or HELLP syndrome. Explained to patient, her mother and that ITP in general is usually a diagnosis of exclusion and her presentation is very consistent with ITP given negative work so far. No concern at this time for underlying hematologic malignancy or other hematologic process.. ITP has been well reported in . Would recommend IVIG 1 g/kg/day x 2 days. For steroid coverage, recommend prednisone 1 mg/kg/day since this is less likely to cross the placenta. Since B12 level is low normal, recommend B12 supplementation. Ideally, would have started her on parenteral B12 supplementation however will start with oral B12 supplementation at this time given severe thrombocytopenia. Recommend rechecking CBC later this afternoon. Would expect platelet count to improve over the next 24 to 48 hours. If she develops any sign of bleeding, would recommend platelet transfusion at that time Hospital Course (1) Thrombocytopenia complicating : -Severe thrombocytopenia with platelets of 1 on presentation improved to 32K after IGG and steroids -Suspect likely ITP in setting of , -Hematology consulted, appreciate recommendations, feel that this is consistent with ITP endorses 48 hrs of IGG and continue steroids, pending platelet count is now 32,000 recommendations is for the patient to remain on prednisone 1 mg/kg/day until seen by outpatient hematology (2) : - at 16 wk GA by US, no other complications with this -Continue vitamin Follow-up with typical care (3) Hyponatremia: -Mild hyponatremia Na 135 on admission, likely 2/2 reduced oral intake -Ongoing fluid repletion -Monitor BMP Plan Code status: Full DVT ppx: SCDs, defer chemoprophylaxis in setting of severe thrombocytopenia Total Time Total Time Spent Total Time Spent (In Minutes): It required less than 30 minutes to prepare this patient for discharge Discharge Plan Discharge Items Patient Disposition: Home - Self-Care Reason For Visit: THROMBOCYTOPENIA Discharge Diagnosis: immune thrombocytopenia Activity: Per Instructions section Non-emergency contact: Primary Care Provider Call non-emergency contact if: your symptoms worsen Follow-up/Referrals: Meg Quigley MD, FACOG [Physician] - (The OB office will call you with an appointment. ) Dalrene Ireland MD [Physician] - 03/14/23 3:00 pm PCP,NO [Primary Care Provider] - Diet: Regular Addtl Attending Provider Instructions: Immune thrombocytopenia (ITP) is a type ofplatelet disorder https://www.nhlbi.nih.gov/health/platelet-disorders . In ITP, your blood does not clot as it should, because you have a low platelet count. Platelets are tiny blood cells that are made in the bone marrow. When you are injured, platelets stick together to form a plug that seals your wound. This plug is called a blood clot. When you have a low platelet count, you may have trouble stopping bleeding. ITP can be acute (short-term) or chronic (long-term). Acute ITP often lasts less than 6 months ITP is caused by problems with yourimmune system https://www.nhlbi.nih.gov/health/immune-thrombocytopenia# . Normally, your immune system helps your body fight off infections and diseases. In ITP, however, your immune system attacks and destroys your bodys platelets by mistake. You may also make fewer platelets. Why this happens is not known. Dr Ireland has recommended that you continue on prednisone, the dose prescribed until you see her in the office. ITP may not cause any symptoms. However, ITP can cause bleeding that is hard to stop. This bleeding can be inside your body, underneath your skin, or from your skin. Signs of bleeding may include: * Petechiae, which are small, flat red spots under the skin caused by blood leaking from blood vessels * Purpura,which is bleeding in your skinthat can cause red, purple, or brownish- yellow spots * Clotted or partially clotted blood under your skin (called a hematoma) that looks or feels like a lump * Nosebleeds or bleeding from your gums * Blood in your urine or stool * Heavy menstrual bleeding * Extreme tiredness If you feel you have these symptoms, please contact Dr Ireland your PCP or OB/GYNE Pending Studies at Discharge: No Stand-Alone Forms: My [facility] [place], Smoking Cessation Medications and DC Order Prescriptions: New prednisone 20 mg Tablet 60 mg PO DAILY Qty: 90 0RF cyanocobalamin (vitamin B-12) 500 mcg Tablet 1,000 mcg PO QAM Qty: 30 0RF Continued prenat.vits,trevor,yjd-sdtf-xunpa Tablet 1 tab PO DAILY Discharge Orders: Discharge Order (Routine); Ordered 02/22/23 Ordered By: Noel Dos Santos Admission Data Admit Date/Time: 02/19/23 23:32 Attending Provider: Noel Dos Santos Admit Provider: Suma Meza Primary Care Provider: PCP,NO Other Providers: Jenifer Watters ; Charlie Smith ; Meg Quigley ; Sil Johnson ; Holly Ontiveros ; Cameron Gonzales ; Megan Schilling ; Angelica Ching ; Yelena Hawkins ; Frida Funez ; Dayron Call ; Darlene Ireland Other Interventions: Discharge Summary Assessment (RN) Last Done: 02/22/23 10:19 Coding Level of Care Code 07073 IN/OBS DISCH 30 MIN/LESS Diagnoses Thrombocytopenia complicating O99.119; D69.6 Z34.90 Hyponatremia E87.1
== END 2023-02-22 11:25 | disposition home or self-care (01) | DRG 832 ==
LOC: ED 19:52 → SUATTDRO 23:32 → EDINP 23:32 → 2S 02-20 16:55

== ENCOUNTER 2023-07-29 07:30 | Inpatient (IN) ==
--- NOTE | 2023-07-24 09:09 | Anesthesiology Consultation ---
Date of Service July 24, 2023 Assessment & Plan (1) Encounter for pre-operative examination: Chart Review Chart Review: order entry initiated induced thrombocytopenia- patient on steroids- platelets WNL 07/23/23- will leave to anesthesiologist discretion if repeat labs needed day of procedure - Check BSG AM DOS to anesthesiologist and OB discretion (gestational DM) -Infectious Disease screening: Per PAT nursing assessment on 07/23/23. No known infectious disease contacts in past 10 days or current infectious disease symptoms. No recent travel outside the country. History Surgery Operation Date: 07/29/23 09:20 Proposed Procedures p Section (Delivery of Baby Through Abdominal Incision) - Meg Quigley MD, FACOG s with Bilateral Tubal Ligation - Meg Quigley MD, FACOG Height/Weight Height: 5 ft 7 in Weight: 71.214 kg Allergies Allergy/AdvReac Type Severity Reaction Status Date / Time No Known Allergies Allergy Verified 07/23/23 16:12 Medications Home Medications Medication Instructions Recorded Confirmed Last Taken prenat.vits,trevor,phh-ovrr-vuibo 1 tab PO QAM 02/11/23 07/23/23 Unknown cyanocobalamin (vitamin B-12) 500 1,000 mcg PO QAM #30 tabs 02/22/23 07/23/23 Unknown mcg tablet prednisone 20 mg tablet 60 mg PO QAM 07/23/23 07/23/23 Unknown Past Medical History Medical History Chronic steroid use due to thrombocytopenia Gestational diabetes diet controlled History of anesthesia reaction difficulty waking Thrombocytopenia induced - per pt started 3 months into Past Family History Family History Other No family history of adverse response to anesthesia Denies family history of Ovarian cancer Breast cancer Colorectal cancer Past Surgical History Surgical History S/P wrist surgery ORIF left wrist--hardware in place Social History Smoking Status: Never smoker Do You Dip or Chew Tobacco: No Hx Alcohol Use: No Hx Substance Use: No substance use type: does not use Lab Results Anesthesia Preop Results Results Anesthesia Widget: WBC 10.08 K/ul (4.8-10.8) 07/23/23 Hgb 10.9 g/dl (12.0-16.0) L 07/23/23 Hct 34.1 % (37.0-47.0) L 07/23/23 Plt 131 K/uL (130-400) 07/23/23
--- NOTE | 2023-07-26 15:46 | History & Physical Report ---
Date of Service July 26, 2023 Assessment & Plan (1) Thrombocytopenia complicating : (2) Breech presentation: Plan Plan for primary c/s and bilateral salpingectomy. The risks of surgery were discussed with the patient including the risks of anesthesia, bleeding requiring transfusion, infection, poor wound healing, urinary retention, damage to surrounding structures including bowels, bladder, vessels, nerves and ureters that may require further surgery, hospitalization or intervention. The other risks of any surgery were discussed including heart attack, blood clots, stroke or . Discussed potential of injury to the baby. Discussed options for control--bariers, hormones, ltrc. discussed risk of regret and ectopic. Desires to proceed. If cephalic on the am of surgery, plan induction of labor. consent reviewed and signed. questions asked and answered. For her ITP. I spoke personally with Dr. Ireland. She notes that she has tried multiple times to get ahold of the patient and not returning calls. She hoped to get her weaned off the steroids prior to her delivery. When I asked specifically about stress dose steriods , she noted she DID NOT require. She recommends just continuing the same dose. Get 50 the am of surgery. To f/u after delivery to hopefully wean. History of Present Illness Chief Complaint: breech presentation Primary Care Provider: NO PCP Pateint is a 28yowf who was found late in the to have breech presentation. Was scheduled on Saturday to have an induction secondary to hx of associated ITP and noncompliance with GDM testing and treatment. she feels well . Has no concerns. She has been on Prednisone 50mg daily for the last several months of the . and Delivery Plans Hx precipitous labor IOL @ 39wk Breech--plan primary c/s with TL 07/29 Acute ITP - Plt count 23 on 02/18/23 - Plt count 1 on 02/19/23 - Following with Dr Ireland: prednisone 50mg QD, Vit B12 - Checking CBC weekly (heme ordering) -plt counts since 02/2023 wnl, last on 07/23--131K - Check CBC 07/26/23 prior to IOL GDM 2/2 noncompliance w/ testing 1hr at 28wk 168, did not do 2hr, manage as GDM as of 35w5d visit. *Wkly NSTs @32wks and Twice wkly @36wks *Serial growth US @28wks *Deliver by [facility] OB Labs: Blood Type O Positive 02/19/23 Antibody Screen NEGATIVE 02/19/23 Hemoglobin 11.2 g/dl (12.0-16.0) L 07/16/23 Hematocrit 34.7 % (37.0-47.0) L 07/16/23 Mean Corpuscular Volume 90.1 fL (80.0-100.0) 07/16/23 Platelet Count 136 K/uL (130-400) 07/16/23 Rubella IgG Antibody Immune (Immune) 02/18/23 Rapid Plasma Reagin Nonreactive (Nonreactive) 02/18/23 Hepatitis B Surface Antigen. NON-REACTIVE (NON-REACTIVE) 02/19/23 Hepatitis C Antibody (EIA) NON-REACTIVE (NON-REACTIVE) 02/19/23 HIV (1&2) Ag and Ab ConfirmationE NON-REACTIVE (NON-REACTIVE) 02/20/23 Glucose 1 Hour 50 gm Load 168 mg/dl (70-130) H 05/28/23 OB Optional Labs: Chlamydia trachomatis RNA Not Detected (NotDetected) 02/18/23 Neisseria gonorrhoeae RNA Not Detected (NotDetected) 02/18/23 declined genetics gbs negative. Allergies Allergy/AdvReac Type Severity Reaction Status Date / Time No Known Allergies Allergy Verified 07/26/23 08:39 Home Medications Medication Instructions Recorded Confirmed Type prenat.vits,trevor,igq-pkpn-vcfti 1 tab PO QAM 02/11/23 07/26/23 History cyanocobalamin (vitamin B-12) 500 1,000 mcg PO QAM #30 tabs 02/22/23 07/26/23 Rx mcg tablet prednisone 20 mg tablet 60 mg PO QAM 07/23/23 07/26/23 History Patient History Medical History Chronic steroid use due to thrombocytopenia Gestational diabetes diet controlled History of anesthesia reaction difficulty waking Thrombocytopenia induced - per pt started 3 months into Surgical History S/P wrist surgery ORIF left wrist--hardware in place Family History Other No family history of adverse response to anesthesia Denies family history of Ovarian cancer Breast cancer Colorectal cancer Social History Smoking Status: Never smoker Second Hand Exposure: No; Do You Dip or Chew Tobacco: No; Hx Alcohol Use: No Hx Substance Use: No Preferred Language: Fijian Communication Ability: Effective Shank Scourer Required: No Beliefs That Will Affect Care: None marital status: marital status details: Carlos Mccarthy (31) [phone] Current Living Situation: Spouse and Family Current Living Situation Comment: Lives with and children current occupational status: employed current occupation: [employer] [place] Feels Safe at Home: Yes Assistive Devices: None OB History Past Pregnancies Del. Date GA wks Lbr Lgth wt Sex Type del Anes Place Del Prov ? Comment 01/08/18 40 30 minutes, pushed 10 minutes 6- 12 M None Other [facility] N 01/28/19 40 30 minutes, pushed 10 minutes 6- 4 F None Other [facility] N [employer] History noncontributory Physical Exam Constitutional: WD/WN, vitals as above Psychiatric: A+Ox3, euthymic affect Coding Level of Care Code None Diagnoses Thrombocytopenia complicating O99.119; D69.6 Breech presentation O32.1XX0
[~2023-07-29 07:30] MED LIST: CITRIC ACID/SODIUM CITRATE 15 ML UDC PO SCH; LACTATED RINGER'S 1,000 ML IV SCH; ceFAZolin 2,000 MG in SYRINGE 0 ML IV SCH
[2023-07-29] MEDS ORDERED: SODIUM CHLORIDE 0.9% 250 ML IV PRN (07:44)
[2023-07-29] MEDS ORDERED: LACTATED RINGER'S 1,000 ML IV SCH (07:45)
[2023-07-29 08:06] LABS: Basophils # (auto) 0.09 K/uL (0.00-0.20); Basophils % (auto) 0.9 %; Eosinophils # (auto) 0.13 K/uL (0.00-0.50); Eosinophils % (auto) 1.3 %; Hematocrit (blood only) 33.2 % (37.0-47.0); Hemoglobin 10.9 g/dl (12.0-16.0); Lymphocytes % (auto) 20.8 %; Mean Corpuscular Hemoglobin 28.6 pg (25.0-34.0); Mean Corpuscular Hgb Conc 32.8 g/dL (32.0-36.0); Mean Corpuscular Volume 87.1 fL (80.0-100.0); Mean Platelet Volume 12.2 fL (9.4-12.4); Monocytes # (auto) 0.51 K/uL (0.11-0.59); Neutrophils # (auto) 7.08 K/uL (1.40-6.50); Platelet Count 130 K/uL (130-400); RDW Coefficient of Variation 13.4 % (11.5-14.5); Red Blood Count 3.81 M/uL (4.20-5.40); White Blood Count 10.11 K/ul (4.8-10.8)
[2023-07-29 08:35] LABS: INR 0.9 (0.9-1.1); Partial Thromboplastin Ratio 0.9; Partial Thromboplastin Time 24.2 Seconds (21.0-31.0)
[2023-07-29] MEDS ORDERED: LACTATED RINGER'S 1,000 ML IV PRN (08:55)
[2023-07-29] MEDS ORDERED: LIDOCAINE 1% LOCAL 20 ML VIAL INFIL PRN (08:55)
[2023-07-29] MEDS ORDERED: OXYTOCIN 30 UNITS/500 ML BAG IV PRN ×3 (08:55→15:11)
--- NOTE | 2023-07-29 09:02 | Labor Progress Brief Note ---
Date of Service July 29, 2023 Subjective Patient is here for primary c/s for breech presentation. Patient notes baby was very active last night. No real labor sx. Assessment & Plan (1) Thrombocytopenia complicating : (2) with 39 completed weeks gestation: Plan Patient had a scheduled primary c/s for breech today. Had been scheduled for induction secondary to itp in . However, cephalic by ultrasound this am. Now plan to return for planned induction. Plan pitocin induction, arom when indicated. fetus category one. desires unmedicated delivery. Anticipate nsv. Admission and Anticipated Discharge Date Admission Date: July 29, 2023 Physical Exam Physical Exam: us--cephalic toco--mics efm--category one cx--3/75/-2/mid/soft Results & Data Vital Signs (Past 12 Hours) Vital Signs Temp Pulse Resp BP 07/29/23 08:04 36.6 C 16 07/29/23 07:42 70 121/78 Coding Level of Care Code None Diagnoses Thrombocytopenia complicating O99.119; D69.6 with 39 completed weeks gestation Z3A.39
--- NOTE | 2023-07-29 12:52 | Labor Progress Brief Note ---
Date of Service July 29, 2023 Subjective Noting contractions, rating 6/10 Assessment & Plan (1) with 39 completed weeks gestation: (2) Thrombocytopenia complicating : Plan continue current management . fetus category one. anticipate . Admission and Anticipated Discharge Date Admission Date: July 29, 2023 Physical Exam Physical Exam: arom--copious clear cx--3.5/75/-2 toco--q1-2 min, pit at 7 efm--140s wtih mod variabiltiy, accels to 140s, no decels Results & Data Vital Signs (Past 12 Hours) Vital Signs Temp Pulse Resp BP 07/29/23 08:04 36.6 C 16 07/29/23 12:36 64 111/70 07/29/23 11:36 69 107/65 07/29/23 11:05 20 07/29/23 11:05 36.6 C 20 07/29/23 10:36 73 117/70 07/29/23 07:42 70 121/78 Coding Level of Care Code None Diagnoses with 39 completed weeks gestation Z3A.39 Thrombocytopenia complicating O99.119; D69.6
--- NOTE | 2023-07-29 14:21 | Labor Progress Brief Note ---
Date of Service July 29, 2023 Subjective Getting uncomfortable. noting some pressure with contractions. Assessment & Plan (1) with 39 completed weeks gestation: Plan continue current management. fetus reassuring, category 2. anticipate . Admission and Anticipated Discharge Date Admission Date: July 29, 2023 Physical Exam Physical Exam: cx--5/100/-1 toco--q1-2min, pit at 7 efm--130s wtih mod variability, accels present, variables with some contractions Results & Data Vital Signs (Past 12 Hours) Vital Signs Temp Pulse Resp BP 07/29/23 08:04 36.6 C 16 07/29/23 13:38 63 106/71 07/29/23 13:00 37.1 C 07/29/23 12:36 64 111/70 07/29/23 11:36 69 107/65 07/29/23 11:05 20 07/29/23 11:05 36.6 C 20 07/29/23 10:36 73 117/70 07/29/23 07:42 70 121/78 Coding Level of Care Code None Diagnoses with 39 completed weeks gestation Z3A.39
[2023-07-29] MEDS ORDERED: BENZOCAINE 20% SPRY 85 APPLN/85 GM CAN EXT PRN (15:11)
[2023-07-29] MEDS ORDERED: ACETAMINOPHEN 325 MG TAB PO PRN (15:11)
[2023-07-29] MEDS ORDERED: DIPHTHERIA/TETANUS/PERTUSSIS Vaccine (Tdap, Age 7+yrs) 0.5mL SYR/VL IM ONE (15:11)
[2023-07-29] MEDS ORDERED: bisacodyL 10 MG SUPP PR PRN (15:11)
[2023-07-29] MEDS ORDERED: HYDROCORTISONE ACETATE 25 MG SUPP PR PRN (15:11)
--- NOTE | 2023-07-29 15:13 | Delivery Summary ---
Vaginal Delivery Summary Date of Service July 29, 2023 Vaginal Delivery Summary and 1st Degree LAC Pre-operative Diagnosis: at 39 weeks itp diagnosed in Post-operative Diagnosis: same Procedure: pitocin arom right labial laceration and repair EBL: 300cc Anesthesia: local lidocaine Procedure: Patient presented for induction, plts at 130K. Got pitocin induction and arom for copious clear. Progressed quickly to c/c/+2. The patient pushed for two contractions to deliver a viable female in wolfgang position. A loose nuchal cord was reduced and the rest of the infant was then delivered without difficulty. The baby was vigorous. The nose and mouth were bulb suctioned and the infant was placed in the maternal abdomen for drying and attention. Cord was clamped and cut at one minute of life. Cord blood and segment obtained. Placenta delivered spontaneous, intact with a three vessel cord. Cervix/sulci/rectum/perineum were intact. A small right labial laceration was repaired in the normal standard fashion using 1% lidocaine. Hemostasis obtained with dilute pitocin and fundal massage. Apgars were 8/9. Mother and baby doing well at the end of the delivery. [facility] [place] Vaginal Delivery Charge Delivery Type Details: and 1st Degree LAC
[2023-07-29] MEDS ORDERED: STAT IV/IM STA (15:25)
[2023-07-29] MEDS ORDERED: CALCIUM GLUCONATE 10% 1,000 MG in SODIUM CHLOR 0.9% MINI-B 50 ML IV ONE (15:25)
[2023-07-29] MEDS: IBUPROFEN 600 MG TAB PO PRN ×2 (16:00→22:47)
[2023-07-29] MEDS: DOCUSATE SODIUM 100 MG CAP PO SCH (20:11)
--- NOTE | 2023-07-30 07:03 | Obstetrical Progress Note ---
Date of Service <Agnes Velazco MD - Last Filed: 07/30/23 08:07> July 30, 2023 Assessment & Plan <Agnes Velazco MD - Last Filed: 07/30/23 08:07> (1) Encounter for assessment: Plan Patient with the above mentioned history and findings was evaluated at bedside and found awake, alert, oriented in all spheres, afebrile, and in no acute distress. Vital signs showed no fever and blood pressures remained stable and she has remained without symptoms of severity (e.g. vision changes, headaches, oliguria, etc.). Her blood type is O positive and most recent hemoglobin is adequate at 10.9 g/dL (07/29/23). She is GBS negative and Rubella immune. Overall, patient is doing well clinically and meeting the desired milestones. Will continue current pp care. Should she remain clinically and hemodynamically stable, will consider discharge tomorrow with follow up with her OB in 6 weeks for routine pp evaluation. All questions were answered. <Charlie Smith MD, FACOG - Last Filed: 07/30/23 08:05> (1) Encounter for assessment: Subjective <Agnes Velazco MD - Last Filed: 07/30/23 08:07> Winter is a 28 y/o female who is now PPD # 1 following at 39+ wga. Reports feeling well overall this morning. Refers mild abdominal cramping & 3/10 pain well managed on analgesics. She is voiding spontaneously without difficulty. She has passed flatus but has not yet had a bowel movement. Tolerating meals overnight and able to ambulate some. Some persistent lochia with some improvement this morning. She is and supplementing with bottle feeds. . Constitutional: no fever, no chills or no sweats Denies shortness of breath or difficulty breathing Cardiovascular: no chest pain or no palpitations Breast: no breast pain Genitourinary (female): no dysuria Neurologic: no headache(s) Denies changes in vision Physical Exam <Agnes Velazco MD - Last Filed: 07/30/23 08:07> General: Alert. Oriented to person, time, and place. Afebrile. No acute distress. Eyes: pupils equal and reactive to light bilaterally, extraocular movements intact. Cardiac: Regular rate and rhythm, no murmurs/rubs/gallops. Respiratory: Clear to auscultation bilaterally a/p, no wheezes/rales/rhonchi. No increased work of breathing. Symmetrical chest rise. No respiratory distress. Abdomen: Soft, nontender, nondistended. Bowel sounds present. Uterus: Uterine fundus firm, non-tender, and palpable 2 cm below umbilicus. Lower Extremities: No lower extremity edema or swelling. No deep calf pain. Dixon's negative bilaterally. Psych: Euthymic affect. Mood and affect congruence. Regular speech rate and content. Results & Data <Agnes Velazco MD - Last Filed: 07/30/23 08:07> Vital Signs (Past 12 Hours) Vital Signs Temp Pulse Resp BP Pulse Ox O2 Del Method 07/30/23 04:00 36.5 C 70 18 121/77 98 Room Air 07/30/23 00:40 36.6 C 59 L 18 113/76 100 Room Air 07/29/23 20:05 Room Air 07/29/23 20:05 36.6 C 72 18 108/67 98 Room Air <Charlie Smith MD, FACOG - Last Filed: 07/30/23 08:05> Co-Signing Physician Notes Resident Physician Supervision Note: I was present with [Name of resident] during the history and exam. I discussed the case with the resident and agree with the findings and plan as documented in the note. Any exceptions or clarifications are listed here: [None] Documented By: Charlie Smith MD, FACOG Resident Activity Tracking <Agnes Velazco MD - Last Filed: 07/30/23 08:07> Resident Involvement: Resident Care Provided Care Provided: OB Delivery
[2023-07-30] MEDS: DOCUSATE SODIUM 100 MG CAP PO SCH ×2 (08:31→20:25)
[2023-07-30] MEDS: PRENATAL VITAMIN 1 TAB PO SCH (08:31)
[2023-07-30] MEDS: IBUPROFEN 600 MG TAB PO PRN (08:31)
[2023-07-30] MEDS: predniSONE 20 MG TAB PO SCH (08:32)
[2023-07-30] MEDS: CYANOCOBALAMIN (B-12) 500 MCG TABLET PO SCH (08:32)
[2023-07-30] MEDS ORDERED: bisacodyL 5 MG TABEC PO SCH (20:00)
[2023-07-31 06:52] LABS: Hematocrit (blood only) 31.2 % (37.0-47.0); Hemoglobin 10.4 g/dl (12.0-16.0)
--- NOTE | 2023-07-31 07:24 | Obstetrical Progress Note ---
Date of Service <Agnes Velazco MD - Last Filed: 07/31/23 08:06> July 31, 2023 Assessment & Plan <Agnes Velazco MD - Last Filed: 07/31/23 08:06> (1) Encounter for assessment: Plan Patient with the above mentioned history and findings was evaluated at bedside and found awake, alert, oriented in all spheres, afebrile, and in no acute distress. Vital signs showed no fever and blood pressures remained stable and she has remained without symptoms of severity (e.g. vision changes, headaches, oliguria, etc.). Her blood type is O positive and today's hemoglobin is adequate at 10.4 g/dL. She is GBS negative and Rubella immune. Overall, patient is doing well clinically and meeting the desired milestones. Since she is clinically and hemodynamically stable, will discharge today with follow up with her OB in 6 weeks for routine pp evaluation. Discharge instructions discussed. All questions were answered. <Dayron Call MD - Last Filed: 07/31/23 08:13> (1) Encounter for assessment: Subjective <Agnes Velazco MD - Last Filed: 07/31/23 08:06> Winter is a 28 y/o female who is now PPD # 2 following at 39+ wga. Reports feeling well overall this morning. Refers mild abdominal cramping & 1/10 pain well managed on analgesics. She is voiding spontaneously without difficulty. She has passed flatus and has had a bowel movement. Tolerating meals overnight and able to ambulate some. Some persistent lochia with some improvement this morning. She is and supplementing with bottle feeds. Constitutional: no fever, no chills or no sweats Denies shortness of breath or difficulty breathing Cardiovascular: no chest pain or no palpitations Breast: no breast pain Genitourinary (female): no dysuria Neurologic: no headache(s) Denies changes in vision Physical Exam <Agnes Velazco MD - Last Filed: 07/31/23 08:06> General: Alert. Oriented to person, time, and place. Afebrile. No acute distress. Eyes: pupils equal and reactive to light bilaterally, extraocular movements intact. Cardiac: Regular rate and rhythm, no murmurs/rubs/gallops. Respiratory: Clear to auscultation bilaterally a/p, no wheezes/rales/rhonchi. No increased work of breathing. Symmetrical chest rise. No respiratory distress. Abdomen: Soft, nontender, nondistended. Bowel sounds present. Uterus: Uterine fundus firm, non-tender, and palpable below umbilicus. Lower Extremities: No lower extremity edema or swelling. No deep calf pain. Dixon's negative bilaterally. Psych: Euthymic affect. Mood and affect congruence. Regular speech rate and content. Results & Data <Agnes Velazco MD - Last Filed: 07/31/23 08:06> Vital Signs (Past 12 Hours) Vital Signs Temp Pulse Resp BP Pulse Ox O2 Del Method 07/31/23 00:00 36.5 C 71 16 104/62 97 Room Air 07/30/23 20:15 36.6 C 73 16 107/70 96 Room Air <Dayron Call MD - Last Filed: 07/31/23 08:13> Co-Signing Physician Notes Patient seen and evaluated with resident and agree with the above findings and plan. Stable for discharge Resident Activity Tracking <Agnes Velazco MD - Last Filed: 07/31/23 08:06> Resident Involvement: Resident Care Provided Care Provided: OB Delivery
[2023-07-31] MEDS: PRENATAL VITAMIN 1 TAB PO SCH (07:52)
[2023-07-31] MEDS: DOCUSATE SODIUM 100 MG CAP PO SCH (07:52)
[2023-07-31] MEDS: CYANOCOBALAMIN (B-12) 500 MCG TABLET PO SCH (08:42)
[2023-07-31] MEDS: predniSONE 20 MG TAB PO SCH (08:42)
== END 2023-07-31 11:35 | disposition home or self-care (01) | DRG 806 ==
LOC: 4S1 07:30 → EDSTATUS 09:20 → 4E2 17:56